=== PATIENT | female | born 1935 | race Caucasian/White ===

== ENCOUNTER → 2016-09-24 | Outpatient (CLI) | payer MEDICARE, OTHER ==
[~2016-09-24] MED LIST: AMLO1CAP70 PO; PANT40TA PO; SUCR1TAB20 PO; TACR60OI TP
== END ==
LOC: IMA 09:55
PROVIDERS: ATTEND Family Medicine
DX: M85.88 Other specified disorders of bone density and structure, other site (principal); E28.39 Other primary ovarian failure; Z87.828 Personal history of other (healed) physical injury and trauma